=== PATIENT | female | born 2000 | race Caucasian/White ===

== ENCOUNTER 2020-11-06 19:21 | Emergency (ER) | payer OTHER, SELFPAY ==
[2020-11-06 19:31] VITALS: BP 130/75; PULSE 81; RESP 16; TEMP 37.3; O2SAT 100
--- NOTE | 2020-11-06 19:33 | ED.SKABFB ---
HPI - Skin/Abscess/Foreign Bdy General Chief complaint: Skin/Abscess/Foreign Body Stated complaint: Lump under left Armpit Time Seen by Provider: 11/06/20 19:33 Source: patient and RN notes reviewed History of Present Illness HPI narrative: Patient is a 20-year-old female who presents the urgent care with her mother with complaints of a lump under the left arm. Patient states that she noticed it on Wednesday and has become more painful. States that her dad tried to plucks the hair assuming it was an ingrown hair . Patient denies of any fever, chills, nausea, vomiting. Patient has been using a warm compress for pain relief. No other acute complaints. No acute distress noted. Patient is aware of the plan of care. Some parts of this dictation were generated by voice recognition software and may contain typographical and/or grammatical inaccuracies. Related Data Home Medications Medication Instructions Recorded Confirmed No Home Medications 11/06/20 11/06/20 Allergies Allergy/AdvReac Type Severity Reaction Status Date / Time hydrocodone Allergy Hives Verified 11/06/20 19:34 Review of Systems Review of Systems: Narrative: CONSTITUTIONAL: Denies fever, chills, or sweats. EYES: Denies visual changes, redness, or discharge. ENT: Denies rhinorrhea, congestion, sore throat, or otalgia. CARDIOVASCULAR: Denies chest pain, palpitations, or edema. RESPIRATORY: Denies cough or dyspnea. GASTROINTESTINAL: Denies abdominal pain, nausea, vomiting, or diarrhea. GENITOURINARY: Denies dysuria or hematuria. SKIN: Reports of a lump under the left arm MUSCULOSKELETAL: Denies back pain, joint pain, or myalgia. NEUROLOGIC: Denies headache, numbness, or weakness. All other systems reviewed are negative, except as documented in HPI. PMFSH Comments At the time of my signature, I reviewed and agree with the nursing past medical, surgical, social, and family history. There is no relevant family history pertinent to the patient complaint. Exam Narrative: Exam Narrative: GENERAL: This is a well-nourished, well-developed patient, in no apparent distress. HEAD: normocephalic, atraumatic. EYES: PERRL. Sclera clear/white. Vision is grossly intact. EARS: External ears normal NOSE: External nose normal with no obvious nasal discharge, nares without redness, no rhinorrhea. THROAT: Mucous membranes moist NECK: Neck supple CARDIOVASCULAR: Regular rate and rhythm without murmurs, gallops, or rubs. RESPIRATORY: Clear to auscultation. Breath sounds equal bilaterally. No wheezes, rales, or rhonchi. SKIN: Pinpoint, smaller than pea-sized, folliculitis noted to the left axilla without any signs or symptoms of infection NEURO: awake, alert, and oriented to person, place and time. There were no obvious focal neurologic abnormalities. EXTREMITIES: No clubbing, cyanosis, or edema. Course Vital Signs Vital signs: Vital Signs Temperature 99.2 F 11/06/20 19:31 Pulse Rate 81 11/06/20 19:31 Respiratory Rate 16 11/06/20 19:31 Blood Pressure 130/75 11/06/20 19:31 Pulse Oximetry 100 11/06/20 19:31 Temperature 99.2 F 11/06/20 19:31 Pulse Rate 81 11/06/20 19:31 Respiratory Rate 16 11/06/20 19:31 Blood Pressure 130/75 11/06/20 19:31 Pulse Oximetry 100 11/06/20 19:31 Reviewed MDM - Skin/Abscess/Foreign Bdy MDM Narrative Medical decision making narrative: Advised the patient not to shave under the arm. Continue with the warm compress. Make sure the armpit stay very clean and dry. Use a nonscented deodorant. Use Tylenol/ibuprofen as needed. Do not try to pick on the area. Trying to pop the area or plucking on the area will increase your risk of infection. Small folliculitis will heal well on their own. Follow-up with your PCP within 2 to 5 days or for worsening symptoms or failure to improve. Differential Diagnosis Differential diagnosis: Likely abscess of skin or subcutaneous tissue, impetigo and contact dermatitis Critical Care Time Cr
== END 2020-11-06 19:43 | disposition home or self-care (01) ==
PROVIDERS: Emergency Provider Nurse Practitioner Family
DX: L73.9 Follicular disorder, unspecified (principal)
CPT/HCPCS: 99211; G0463